=== PATIENT | female | born 1960 | race Caucasian/White ===

== ENCOUNTER → 2016-10-11 | Outpatient (CLI) | payer SELFPAY | LOC: COL.RAD 15:15 | DX: R22.42 Localized swelling, mass and lump, left lower limb (principal) ==

== ENCOUNTER 2017-03-01 12:53 | Emergency (ER) | payer OTHER ==
[~2017-03-01] VITALS: Ht 175.3 cm; Wt 105.7 kg
[2017-03-01 12:56] VITALS: BP 172/81; TEMP 97.7
[2017-03-01 14:43] LABS: BASO # 0.1 (0.0-0.2); BASO % 0.7 % (0.0-2.0); EOS # 0.2 (0.0-0.7); EOS % 2.1 % (0-4.0); GRAN # 4.7 (1.4-6.5); GRAN % 58.7 % (42.2-75.2); HEMATOCRIT 44.7 % (37.0-47.0); LYMPH # 2.6 (1.2-3.4); LYMPH % 31.7 % (20.0-51.0); MEAN CELL VOLUME 95 fl (80.0-100.0); MEAN CORPUSCULAR HEMOGLOBIN 32 pg (27.0-31.0); MEAN CORPUSCULAR HGB CONC 34 g/dl (33.0-37.0); MEAN PLATELET VOLUME 9.3 fl (7.4-10.4); MONO # 0.5 (0.1-0.6); MONO % 6.7 % (1.7-9.3); PLATELET COUNT 286 K/mm3 (130-400); RED BLOOD COUNT 4.73 M/mm3 (4.10-5.30)
[2017-03-01 14:58] LABS: ALBUMIN 4.8 gm/dL (3.5-5.0); BILIRUBIN,TOTAL 0.5 mg/dL (0.0-1.0); CALCIUM 9.6 mg/dL (8.4-10.2); CREATININE, serum 0.83 mg/dL (0.52-1.25); POTASSIUM 4.1 mmol/L (3.4-5.0); TOTAL PROTEIN 8.6 gm/dL (6.4-8.2)
[2017-03-01 15:04] LABS: COLLECTION METHOD CLEAN CATCH
[2017-03-01 15:16] LABS: MUCOUS Present /lpf; PH 6 (5-8); URINE APPEARANCE Hazy; URINE BACTERIA None Seen /hpf; URINE BILIRUBIN Negative (NEGATIVE); URINE BLOOD Negative (NEGATIVE); URINE COLOR Yellow; URINE GLUCOSE Negative (NEGATIVE); URINE KETONE Trace (NEGATIVE); URINE LEUKOCYTE ESTERASE Trace (NEGATIVE); URINE PROTEIN(semi-quant) 1+ (NEGATIVE)
[2017-03-01 15:28] LABS: TSH w REFLEX 1.45 uIU/mL (0.465-4.680)
[2017-03-01] MEDS ORDERED: ANTIVERT 25MG25 MG PO (16:00)
[2017-03-01 16:11] VITALS: PULSE 87
[2017-03-01] MEDS ORDERED: SUDAFED 12 HOU120 MG PO (16:28)
== END 2017-03-01 16:30 | disposition home or self-care (01) ==
LOC: COL.ER 12:53
PROVIDERS: Nurse Practitioner
DX: R42 Dizziness and giddiness (principal)

== ENCOUNTER → 2017-09-25 | Outpatient (CLI) | payer OTHER ==
[~2017-09-25] MED LIST: ANTIVERT 25MG25 MG PO; SUDAFED 12 HOU120 MG PO
== END ==
LOC: COL.RAD 09:42
DX: Z02.71 Encounter for disability determination (principal); M47.816 Spondylosis without myelopathy or radiculopathy, lumbar region; M17.12 Unilateral primary osteoarthritis, left knee

== ENCOUNTER → 2017-12-25 | Outpatient (CLI) | payer OTHER ==
[2017-12-25 12:55] LABS: COLLECTION METHOD CLEAN CATCH
[2017-12-25 12:59] LABS: BASO # 0.1 (0.0-0.2); BASO % 0.6 % (0.0-2.0); EOS # 0.1 (0.0-0.7); EOS % 1.5 % (0-4.0); GRAN # 5.3 (1.4-6.5); GRAN % 66.2 % (42.2-75.2); HEMATOCRIT 46.3 % (37.0-47.0); HEMOGLOBIN 15.8 g/dl (12.5-16.0); LYMPH # 2.1 (1.2-3.4); LYMPH % 26.1 % (20.0-51.0); MEAN CELL VOLUME 93 fl (80.0-100.0); MEAN CORPUSCULAR HEMOGLOBIN 32 pg (27.0-31.0); MEAN CORPUSCULAR HGB CONC 34 g/dl (33.0-37.0); MEAN PLATELET VOLUME 9.6 fl (7.4-10.4); MONO # 0.4 (0.1-0.6); MONO % 5.5 % (1.7-9.3); PLATELET COUNT 294 K/mm3 (130-400); REDCELL DISTRIBUTION WIDTH-CV 11.7 % (11.5-14.5)
[2017-12-25 13:04] LABS: MUCOUS Present /lpf; PH 5 (5-8); URINE APPEARANCE Hazy; URINE BACTERIA None Seen /hpf; URINE BILIRUBIN Negative (NEGATIVE); URINE BLOOD Negative (NEGATIVE); URINE COLOR Yellow; URINE GLUCOSE Negative (NEGATIVE); URINE KETONE Negative (NEGATIVE); URINE LEUKOCYTE ESTERASE Negative (NEGATIVE); URINE NITRATE Negative (NEGATIVE); URINE PROTEIN(semi-quant) Negative (NEGATIVE); URINE UROBILINOGEN Negative (NEGATIVE)
[2017-12-25 13:10] LABS: ALBUMIN 4.7 gm/dL (3.5-5.0); BILIRUBIN,TOTAL 0.6 mg/dL (0.0-1.0); CALCIUM 9.7 mg/dL (8.4-10.2); CHOLESTEROL RISK RATIO 5.4; CREATININE, serum 0.93 mg/dL (0.52-1.25); POTASSIUM 4.3 mmol/L (3.4-5.0); TOTAL PROTEIN 8.8 gm/dL (6.4-8.2)
[2017-12-25 13:40] LABS: THYROID STIMULATING HORMONE 1.96 uIU/mL (0.465-4.680)
[2017-12-26 01:17] LABS: FOLATE (FOLIC ACID) 8.4 ng/mL (7.0-31.4)
== END ==
LOC: COL.LAB 12:07
PROVIDERS: Nurse Practitioner Family
DX: R53.82 Chronic fatigue, unspecified (principal); R53.1 Weakness

== ENCOUNTER → 2018-04-02 | Outpatient (CLI) | payer MEDICAID | LOC: COL.RAD 10:04 | DX: D49.2 Neoplasm of unspecified behavior of bone, soft tissue, and skin (principal) ==

== ENCOUNTER → 2018-04-29 | Outpatient (CLI) | payer MEDICAID | LOC: COL.RAD 12:07 | DX: D49.2 Neoplasm of unspecified behavior of bone, soft tissue, and skin (principal); R22.42 Localized swelling, mass and lump, left lower limb ==

== ENCOUNTER 2018-06-21 15:33 | Emergency (ER) | payer MEDICAID ==
[~2018-06-21] VITALS: Ht 175.3 cm; Wt 97.3 kg
[2018-06-21 15:35] VITALS: TEMP 97.2
[2018-06-21 15:58] LABS: HEMATOCRIT 43.1 % (37.0-47.0); HEMOGLOBIN 14.6 g/dl (12.5-16.0); MEAN CELL VOLUME 94 fl (80.0-100.0); MEAN CORPUSCULAR HEMOGLOBIN 32 pg (27.0-31.0); MEAN CORPUSCULAR HGB CONC 34 g/dl (33.0-37.0); MEAN PLATELET VOLUME 9.5 fl (7.4-10.4); PLATELET COUNT 238 K/mm3 (130-400); RED BLOOD COUNT 4.59 M/mm3 (4.10-5.30); REDCELL DISTRIBUTION WIDTH-CV 11.7 % (11.5-14.5)
[2018-06-21 16:10] LABS: ALANINE AMINOTRANSFERASE 39 U/L (9-52); ALBUMIN 4.1 gm/dL (3.5-5.0); ALKALINE PHOSPHATASE 84 U/L (50-136); ANION GAP 11 mmol/L (7-16); AST,SGOT 33 U/L (15-37); BILIRUBIN,TOTAL 0.4 mg/dL (0.0-1.0); BLOOD UREA NITROGEN 15 mg/dL (7-17); CALCIUM 9.5 mg/dL (8.4-10.2); CARBON DIOXIDE 26 mmol/L (22-30); CHLORIDE 104 mmol/L (98-107); CREATININE, serum 1.04 mg/dL (0.52-1.25); GLUCOSE 104 mg/dL (74-106); SODIUM 141 mmol/L (137-145); TOTAL PROTEIN 7.5 gm/dL (6.4-8.2)
[2018-06-21 16:13] LABS: ACETAMINOPHEN < 10 ug/mL (10-30); ALCOHOL(ethanol),MEDICAL < 10 mg/dL; SALICYLATE < 1.0 mg/dL
[2018-06-21 16:21] LABS: TROPONIN-I < 0.012 ng/mL (0.000-0.035)
[2018-06-21] MEDS ORDERED: MILK THISTLE500 M2 PO (16:22)
[2018-06-21] MEDS ORDERED: VITAMIND3 5000 PO (16:23)
[2018-06-21 16:37] LABS: LYMPHOCYTE 46 % (20.0-51.0); NEUTROPHILS 47 % (42.0-75.2)
[2018-06-21 16:38] LABS: PLATELET ESTIMATE NORMAL (NORMAL)
[2018-06-21 17:13] LABS: COLLECTION METHOD CLEAN CATCH
[2018-06-21 17:27] LABS: TRICYCLIC ANTIDEPRESS URINE NEGATIVE
[2018-06-21 17:58] LABS: MUCOUS Present /lpf; PH 5 (5-8); SQUAMOUS EPITHELIAL 0-2 /hpf; URINE APPEARANCE Hazy; URINE BACTERIA None Seen /hpf; URINE BILIRUBIN Negative (NEGATIVE); URINE BLOOD Negative (NEGATIVE); URINE COLOR Yellow; URINE GLUCOSE Negative (NEGATIVE); URINE KETONE Negative (NEGATIVE); URINE LEUKOCYTE ESTERASE Negative (NEGATIVE); URINE NITRATE Negative (NEGATIVE); URINE PROTEIN(semi-quant) Negative (NEGATIVE); URINE RBC 0-2 /hpf
[2018-06-21] MEDS ORDERED: ZITHROMAX 250M250 MG PO (18:13)
[2018-06-21 18:21] VITALS: BP 122/86; PULSE 78
== END 2018-06-21 18:25 | disposition home or self-care (01) ==
LOC: COL.ER 15:33
PROVIDERS: Emergency Medicine
DX: R19.7 Diarrhea, unspecified (principal); J40 Bronchitis, not specified as acute or chronic

== ENCOUNTER 2018-12-01 16:41 | Emergency (ER) | payer MEDICAID ==
[~2018-12-01] VITALS: Ht 172.7 cm; Wt 101.8 kg
[~2018-12-01 16:41] MED LIST changes: +MILK THISTLE500 M2 PO; +VITAMIND3 5000 PO; +ZITHROMAX 250M250 MG PO
[2018-12-01 16:49] VITALS: TEMP 97.9
[2018-12-01] MEDS ORDERED: ERGOCALCIFER50000 IU PO (17:28)
[2018-12-01] MEDS ORDERED: WELCHOL 625MG625 MG PO (17:30)
[2018-12-01 17:52] LABS: BASO # 0.1 (0.0-0.2); BASO % 0.6 % (0.0-2.0); EOS # 0.2 (0.0-0.7); EOS % 2.1 % (0-4.0); GRAN # 4.9 (1.4-6.5); HEMATOCRIT 41.4 % (37.0-47.0); HEMOGLOBIN 13.6 g/dl (12.5-16.0); LYMPH # 2.4 (1.2-3.4); LYMPH % 29.9 % (20.0-51.0); MEAN CELL VOLUME 96 fl (80.0-100.0); MEAN CORPUSCULAR HEMOGLOBIN 32 pg (27.0-31.0); MEAN CORPUSCULAR HGB CONC 33 g/dl (33.0-37.0); MEAN PLATELET VOLUME 9.3 fl (7.4-10.4); MONO # 0.5 (0.1-0.6); MONO % 6.2 % (1.7-9.3); PLATELET COUNT 309 K/mm3 (130-400); RED BLOOD COUNT 4.32 M/mm3 (4.10-5.30); REDCELL DISTRIBUTION WIDTH-CV 11.5 % (11.5-14.5)
[2018-12-01 18:11] LABS: ALBUMIN 4.3 gm/dL (3.5-5.0); BILIRUBIN,TOTAL 0.4 mg/dL (0.0-1.0); C-REACTIVE PROTEIN 0.9 mg/dL (0.0-0.9); CALCIUM 9.1 mg/dL (8.4-10.2); CREATININE, serum 0.86 (0.52-1.25); POTASSIUM 3.9 mmol/L (3.4-5.0)
[2018-12-01 18:41] LABS: ERYTHROCYTE SEDIMENTATION RATE 14 mm/hr (0-30)
[2018-12-01] MEDS ORDERED: CEPHALEXIN500 M1 PO (18:59)
[2018-12-01 19:06] VITALS: BP 135/82; PULSE 73
== END 2018-12-01 19:07 | disposition home or self-care (01) ==
LOC: COL.ER 16:41
PROVIDERS: Emergency Medicine
DX: T81.89XA Other complications of procedures, not elsewhere classified, initial encounter (principal); E78.5 Hyperlipidemia, unspecified; Z87.891 Personal history of nicotine dependence

== ENCOUNTER → 2018-12-23 | Outpatient (CLI) | payer MEDICAID ==
[~2018-12-23] MED LIST changes: +CEPHALEXIN500 M1 PO; +ERGOCALCIFER50000 IU PO; +WELCHOL 625MG625 MG PO
== END ==
LOC: MC.RAD 09:00
DX: Z12.31 Encounter for screening mammogram for malignant neoplasm of breast (principal); N64.89 Other specified disorders of breast

== ENCOUNTER → 2018-12-25 | Outpatient (CLI) | payer MEDICAID | LOC: ZCOL.LAB 10:13 | DX: T81.31XA Disruption of external operation (surgical) wound, not elsewhere classified, initial encounter (principal) ==

== ENCOUNTER → 2018-12-26 | Outpatient (CLI) | payer MEDICAID | LOC: MC.RAD 12:54 | DX: N63.32 Unspecified lump in axillary tail of the left breast (principal); N63.13 Unspecified lump in the right breast, lower outer quadrant | CPT/HCPCS: G0279 ==

== ENCOUNTER → 2019-01-06 | Outpatient (CLI) | payer MEDICAID | LOC: MC.RAD 09:30 | DX: N63.10 Unspecified lump in the right breast, unspecified quadrant (principal); N63.21 Unspecified lump in the left breast, upper outer quadrant; Z98.82 Breast implant status; T81.31XA Disruption of external operation (surgical) wound, not elsewhere classified, initial encounter ==

== ENCOUNTER → 2019-01-06 | Outpatient (CLI) | payer MEDICAID | LOC: ZCOL.LAB 16:23 | DX: H60.91 Unspecified otitis externa, right ear (principal) ==

== ENCOUNTER → 2019-01-21 | Outpatient (CLI) | payer MEDICAID | LOC: ZCOL.LAB 16:14 | DX: Z11.3 Encounter for screening for infections with a predominantly sexual mode of transmission (principal); N89.8 Other specified noninflammatory disorders of vagina ==

== ENCOUNTER → 2019-02-04 | Outpatient (CLI) | payer MEDICAID | LOC: COL.RAD 11:57 | DX: C50.412 Malignant neoplasm of upper-outer quadrant of left female breast (principal); C50.511 Malignant neoplasm of lower-outer quadrant of right female breast; K80.20 Calculus of gallbladder without cholecystitis without obstruction; Z98.890 Other specified postprocedural states | CPT/HCPCS: Q9967 ==

== ENCOUNTER → 2019-02-12 | Outpatient (CLI) | payer MEDICAID ==
[2019-02-12 17:37] LABS: BASO # 0.1 (0.0-0.2); BASO % 0.9 % (0.0-2.0); EOS # 0.2 (0.0-0.7); EOS % 2.8 % (0-4.0); GRAN # 4.3 (1.4-6.5); GRAN % 60.7 % (42.2-75.2); HEMATOCRIT 43.3 % (37.0-47.0); HEMOGLOBIN 14.3 g/dl (12.5-16.0); MEAN CELL VOLUME 95 fl (80.0-100.0); MEAN CORPUSCULAR HEMOGLOBIN 32 pg (27.0-31.0); MEAN CORPUSCULAR HGB CONC 33 g/dl (33.0-37.0); MEAN PLATELET VOLUME 10.4 fl (7.4-10.4); MONO # 0.4 (0.1-0.6); MONO % 6.3 % (1.7-9.3); PLATELET COUNT 289 K/mm3 (130-400); RED BLOOD COUNT 4.54 M/mm3 (4.10-5.30); REDCELL DISTRIBUTION WIDTH-CV 11.6 % (11.5-14.5)
[2019-02-12 17:49] LABS: CALCIUM 9.7 mg/dL (8.4-10.2); CREATININE, serum 0.89 (0.52-1.25); POTASSIUM 4.3 mmol/L (3.4-5.0)
== END ==
LOC: ZCOL.LAB 16:38
PROVIDERS: Family Medicine
DX: D05.11 Intraductal carcinoma in situ of right breast (principal); E55.9 Vitamin D deficiency, unspecified; E53.8 Deficiency of other specified B group vitamins

== ENCOUNTER 2019-03-13 16:57 | Emergency (ER) | payer MEDICAID ==
[~2019-03-13] VITALS: Ht 170.2 cm; Wt 105.5 kg
[2019-03-13 17:08] VITALS: BP 175/108; TEMP 97.3
[2019-03-13] MEDS ORDERED: MOTRIN 800800 MG/TAB PO (18:11)
[2019-03-13] MEDS ORDERED: BACTRIM DS 8001 TAB PO (18:24)
[2019-03-13 18:42] VITALS: PULSE 89
== END 2019-03-13 18:42 | disposition home or self-care (01) ==
LOC: COL.ER 16:57
DX: T36.1X5A Adverse effect of cephalosporins and other beta-lactam antibiotics, initial encounter (principal); E11.9 Type 2 diabetes mellitus without complications; Z87.891 Personal history of nicotine dependence; Z88.6 Allergy status to analgesic agent

== ENCOUNTER → 2019-03-16 | Outpatient (CLI) | payer MEDICAID ==
[~2019-03-16] MED LIST changes: +BACTRIM DS 8001 TAB PO; +MOTRIN 800800 MG/TAB PO
== END ==
LOC: ZCOL.LAB 14:57
DX: E55.9 Vitamin D deficiency, unspecified (principal)

== ENCOUNTER 2019-03-29 09:11 | Emergency (ER) | payer MEDICAID ==
[~2019-03-29] VITALS: Ht 170.2 cm; Wt 103.6 kg
[2019-03-29 09:14] VITALS: TEMP 97.6
[2019-03-29 10:15] LABS: BASO # 0.1 (0.0-0.2); BASO % 0.8 % (0.0-2.0); EOS # 0.4 (0.0-0.7); EOS % 5.4 % (0-4.0); GRAN # 4.3 (1.4-6.5); GRAN % 58.6 % (42.2-75.2); HEMATOCRIT 39.4 % (37.0-47.0); HEMOGLOBIN 12.8 g/dl (12.5-16.0); LYMPH # 2.1 (1.2-3.4); LYMPH % 28.3 % (20.0-51.0); MEAN CELL VOLUME 96 fl (80.0-100.0); MEAN CORPUSCULAR HEMOGLOBIN 31 pg (27.0-31.0); MEAN CORPUSCULAR HGB CONC 33 g/dl (33.0-37.0); MEAN PLATELET VOLUME 9.4 fl (7.4-10.4); MONO # 0.5 (0.1-0.6); MONO % 6.6 % (1.7-9.3); PLATELET COUNT 319 K/mm3 (130-400); RED BLOOD COUNT 4.09 M/mm3 (4.10-5.30); REDCELL DISTRIBUTION WIDTH-CV 11.5 % (11.5-14.5)
[2019-03-29 10:22] LABS: ALBUMIN 3.7 gm/dL (3.5-5.0); BILIRUBIN,TOTAL 0.4 mg/dL (0.0-1.0); CALCIUM 8.7 mg/dL (8.4-10.2); CREATININE, serum 0.83 (0.52-1.25); POTASSIUM 3.8 mmol/L (3.4-5.0); TOTAL PROTEIN 6.7 gm/dL (6.4-8.2)
[2019-03-29] MEDS ORDERED: FLEXERIL 1010 MG/TAB PO (11:36)
[2019-03-29 12:16] VITALS: BP 145/85; PULSE 61
--- NOTE | 2019-03-29 16:00 | NUR ---
SW was called to assist patient with HHS. Patient had a double masectomy on March 10, 2019 and had encountered a sharp pain, which sent her to the ER. Patient lives alone in [facility]. SW and patient discussed HHS, and patient [facility] to receive services. Patient does live alone. Shortly after interview concluded, SW received a call from [facility] reporting that patient had called them asking for services. SW provided information and [facility] will call SW tomorrow to see if they will accept patient for services. LIS also faxed a referral to [facility].
--- NOTE | 2019-03-30 11:25 | NUR ---
body worker spoke with Cecilia at [facility] and confirmed that patient has medicaid and that they do not provide services for medicaid patients and are currently attempting to find agency to see patient. Mariela is also completed a yadiel application if they cannot find an agency. Worker spoke with James at [facility] and confirmed that they only provide palliative care services to patient not seeking treatment. HomeCare is currently on hold, per worker's request. Worker spoke with patient and advised that we are working on an agency to see patient. Patient states she can provide her drain care, however, is agreeable to at least have one alf health visit.
--- NOTE | 2019-03-31 14:42 | NUR ---
sprinkler worker notified Dr Ordoñez's office and advised that patient declined further assistance in attempting to arrange a home health agency.
== END 2019-03-29 12:19 | disposition home or self-care (01) ==
LOC: COL.ER 09:11
PROVIDERS: Emergency Medicine
DX: S29.011A Strain of muscle and tendon of front wall of thorax, initial encounter (principal); Z85.3 Personal history of malignant neoplasm of breast; Z90.13 Acquired absence of bilateral breasts and nipples; X58.XXXA Exposure to other specified factors, initial encounter
CPT/HCPCS: J2405; Q9967

== ENCOUNTER → 2019-07-28 | Outpatient (CLI) | payer MEDICAID ==
[~2019-07-28] MED LIST changes: +FLEXERIL 1010 MG/TAB PO
== END ==
LOC: COL.RAD 13:57
DX: M54.5 Low back pain (principal)

== ENCOUNTER 2019-08-01 11:38 | Emergency (ER) | payer MEDICAID ==
[~2019-08-01] VITALS: Ht 172.7 cm; Wt 98.2 kg
[2019-08-01 11:54] VITALS: TEMP 97.7
[2019-08-01] MEDS ORDERED: AMOXICILLIN 50500 MG PO (12:40)
[2019-08-01] MEDS ORDERED: PRILOSEC 20MG20 MG PO (12:43)
[2019-08-01 12:56] VITALS: BP 175/81; PULSE 66
== END 2019-08-01 12:57 | disposition home or self-care (01) ==
LOC: COL.ER 11:38
DX: J39.2 Other diseases of pharynx (principal); R59.1 Generalized enlarged lymph nodes; E11.9 Type 2 diabetes mellitus without complications; Z87.891 Personal history of nicotine dependence; Z79.82 Long term (current) use of aspirin; Z88.6 Allergy status to analgesic agent; Z88.8 Allergy status to other drugs, medicaments and biological substances

== ENCOUNTER 2019-09-03 10:56 | Emergency (ER) | payer MEDICAID ==
[~2019-09-03] VITALS: Ht 172.7 cm; Wt 96.8 kg
[~2019-09-03 10:56] MED LIST changes: +AMOXICILLIN 50500 MG PO; +PRILOSEC 20MG20 MG PO
[2019-09-03 10:59] VITALS: TEMP 98.2
[2019-09-03] MEDS ORDERED: NIASPAN1000 MG PO (11:15)
[2019-09-03] MEDS ORDERED: NORVASC 10MG10 MG PO (11:19)
[2019-09-03] MEDS ORDERED: HYZAAR 50-12.1 UDTAB PO (11:19)
[2019-09-03] MEDS ORDERED: B2-5050 MG PO (11:20)
[2019-09-03 11:41] VITALS: BP 129/68
[2019-09-03 11:44] LABS: BASO % 0.4 % (0.0-2.0); EOS # 0.2 (0.0-0.7); EOS % 2.4 % (0-4.0); GRAN # 4.9 (1.4-6.5); GRAN % 68.6 % (42.2-75.2); HEMATOCRIT 40.7 % (37.0-47.0); HEMOGLOBIN 13.4 g/dl (12.5-16.0); LYMPH # 1.6 (1.2-3.4); LYMPH % 22.2 % (20.0-51.0); MEAN CELL VOLUME 95 fl (80.0-100.0); MEAN CORPUSCULAR HEMOGLOBIN 31 pg (27.0-31.0); MEAN CORPUSCULAR HGB CONC 33 g/dl (33.0-37.0); MEAN PLATELET VOLUME 9.4 fl (7.4-10.4); MONO # 0.5 (0.1-0.6); MONO % 6.3 % (1.7-9.3); PLATELET COUNT 261 K/mm3 (130-400); REDCELL DISTRIBUTION WIDTH-CV 12.2 % (11.5-14.5)
[2019-09-03 11:55] LABS: ALBUMIN 4.2 gm/dL (3.5-5.0); BILIRUBIN,TOTAL 0.8 mg/dL (0.0-1.0); CALCIUM 9.5 mg/dL (8.4-10.2); CREATININE, serum 0.79 (0.52-1.25); POTASSIUM 3.5 mmol/L (3.4-5.0); TOTAL PROTEIN 7.8 gm/dL (6.4-8.2)
[2019-09-03 12:33] VITALS: PULSE 72
== END 2019-09-03 12:34 | disposition home or self-care (01) ==
LOC: COL.ER 10:56
PROVIDERS: Nurse Practitioner Primary Care
DX: M25.551 Pain in right hip (principal); G89.29 Other chronic pain; E11.9 Type 2 diabetes mellitus without complications; I10 Essential (primary) hypertension; Z85.3 Personal history of malignant neoplasm of breast

== ENCOUNTER 2019-10-30 09:28 | Emergency (ER) | payer MEDICAID ==
[~2019-10-30] VITALS: Ht 170.2 cm; Wt 92.3 kg
[~2019-10-30 09:28] MED LIST changes: +B2-5050 MG PO; +HYZAAR 50-12.1 UDTAB PO; +NIASPAN1000 MG PO; +NORVASC 10MG10 MG PO
[2019-10-30 09:29] VITALS: BP 148/68; PULSE 72; TEMP 97
[2019-10-30 11:00] LABS: BASO # 0.1 (0.0-0.2); BASO % 0.8 % (0.0-2.0); EOS # 0.4 (0.0-0.7); EOS % 5.9 % (0-4.0); GRAN # 4.3 (1.4-6.5); GRAN % 64.9 % (42.2-75.2); HEMATOCRIT 36.9 % (37.0-47.0); LYMPH # 1.5 (1.2-3.4); LYMPH % 22.4 % (20.0-51.0); MEAN CELL VOLUME 96 fl (80.0-100.0); MEAN CORPUSCULAR HEMOGLOBIN 31 pg (27.0-31.0); MEAN CORPUSCULAR HGB CONC 33 g/dl (33.0-37.0); MEAN PLATELET VOLUME 9.3 fl (7.4-10.4); MONO # 0.4 (0.1-0.6); MONO % 5.7 % (1.7-9.3); PLATELET COUNT 391 K/mm3 (130-400); RED BLOOD COUNT 3.86 M/mm3 (4.10-5.30); REDCELL DISTRIBUTION WIDTH-CV 11.6 % (11.5-14.5)
--- NOTE | 2019-10-30 11:26 | NUR ---
heating and ventilating worker met with patient and advised that patient will need to contact [employer] [facility] and attest to covid questions. Worker offered to assist with Transportation line needed staff to advise that appointment was moved up to Saturday, due to increased need. Patient became uncooperative and declining to make the call. Worker spoke with Dr Sosa's PA, Lesley #[phone] and advised of the above information. Lesley moved up patient's surgery, per request as patient was concerns and coming to the emergency room for care. Worker collaborated with provider and nurse regarding the above information.
--- NOTE | 2019-11-02 15:56 | NUR ---
insole department worker spoke with patient and assisted in securing that she is able to contact [employer] and request transporation rides. Patient stated that initially she was unable to speak with [employer] and now she has been able to successfully secure rides.
--- NOTE | 2019-11-04 12:49 | NUR ---
[facility] case management contacted this social media marketing manager and confirmed they will make contact with patient to assess and possibly set up case management.
== END 2019-10-30 13:15 | disposition home or self-care (01) ==
LOC: COL.ER 09:28
PROVIDERS: Physician Assistant
DX: L76.82 Other postprocedural complications of skin and subcutaneous tissue (principal); N61.1 Abscess of the breast and nipple; I10 Essential (primary) hypertension; Z87.891 Personal history of nicotine dependence; Z90.13 Acquired absence of bilateral breasts and nipples

== ENCOUNTER 2019-11-21 10:01 | Outpatient (RCR) | payer MEDICAID ==
[2019-11-20 07:56] VITALS: BP 153/73; PULSE 56; TEMP 98.1
[~2019-11-21] VITALS: Ht 170.2 cm; Wt 92.6 kg
[~2019-11-21 10:01] MED LIST changes: +D3-5050000 IU PO; +TAMOXIFEN CITRA20 MG PO
[2019-11-22 09:13] VITALS: PULSE 83; TEMP 98.8
--- NOTE | 2019-11-22 14:29 | NUR ---
Received call from charge nurse(morning shift) that patient had been discharged and was needing assistqance with transportation to her antibiotic Infusion treatment at the hospital. SW contacted patient who indicated that the sales route driver had shown up late last time and so she asked if she could have her pickup time changed from 645 to 9 or 930. Sw did contact [employer] at spoke with Man who indicated that he would update patients transport time to 9 or 930. SW contacted patient to inform her of the change.
[2019-11-23 10:50] VITALS: BP 147/81; PULSE 81; TEMP 97.8
[2019-11-23 10:58] LABS: HEMATOCRIT 38.7 % (37.0-47.0); HEMOGLOBIN 12.5 g/dl (12.5-16.0); MEAN CELL VOLUME 93 fl (80.0-100.0); MEAN CORPUSCULAR HEMOGLOBIN 30 pg (27.0-31.0); MEAN CORPUSCULAR HGB CONC 32 g/dl (33.0-37.0); MEAN PLATELET VOLUME 8.8 fl (7.4-10.4); PLATELET COUNT 406 K/mm3 (130-400); RED BLOOD COUNT 4.15 M/mm3 (4.10-5.30); REDCELL DISTRIBUTION WIDTH-CV 11.7 % (11.5-14.5)
[2019-11-23 11:14] LABS: ALBUMIN 4.2 gm/dL (3.5-5.0); BILIRUBIN,TOTAL 0.5 mg/dL (0.0-1.0); CALCIUM 9.5 mg/dL (8.4-10.2); CREATININE, serum 0.96 (0.52-1.25); TOTAL PROTEIN 8.4 gm/dL (6.4-8.2)
[2019-11-24 10:08] VITALS: BP 146/100; PULSE 105; TEMP 98.6
[2019-11-25 11:32] VITALS: BP 182/96; PULSE 78; TEMP 98.3
[2019-11-26 09:55] VITALS: BP 158/83; PULSE 62; TEMP 98.4
[2019-11-27 10:05] VITALS: BP 174/107; PULSE 57; TEMP 98.2
--- NOTE | 2019-11-27 10:06 | NUR ---
Pt request bp to be taken on right lower leg.Pt refuses to lay down or recline so leg in dependant position for bp.Educated pt on accurate reading and need to recheck.Pt refuses to recline chair,This nurse unclear if bp accurate.
[2019-11-28 10:18] VITALS: BP 156/99; PULSE 52; TEMP 97.9
--- NOTE | 2019-11-28 10:19 | NUR ---
INT discontinued per pt request so she may shower.
[2019-11-29 10:15] VITALS: BP 136/70; PULSE 60; TEMP 98.1
[2019-11-30 10:41] VITALS: BP 159/83; PULSE 62
[2019-11-30 11:09] LABS: BASO # 0.1 (0.0-0.2); BASO % 1.2 % (0.0-2.0); EOS # 0.4 (0.0-0.7); EOS % 6.6 % (0-4.0); GRAN # 3.9 (1.4-6.5); GRAN % 59.5 % (42.2-75.2); HEMOGLOBIN 12.8 g/dl (12.5-16.0); LYMPH # 1.7 (1.2-3.4); LYMPH % 25.5 % (20.0-51.0); MEAN CELL VOLUME 93 fl (80.0-100.0); MEAN CORPUSCULAR HEMOGLOBIN 30 pg (27.0-31.0); MEAN CORPUSCULAR HGB CONC 33 g/dl (33.0-37.0); MEAN PLATELET VOLUME 9.5 fl (7.4-10.4); MONO # 0.5 (0.1-0.6); PLATELET COUNT 309 K/mm3 (130-400); RED BLOOD COUNT 4.21 M/mm3 (4.10-5.30); REDCELL DISTRIBUTION WIDTH-CV 11.9 % (11.5-14.5)
[2019-11-30 11:24] LABS: ALBUMIN 4.3 gm/dL (3.5-5.0); BILIRUBIN,TOTAL 0.5 mg/dL (0.0-1.0); C-REACTIVE PROTEIN 0.7 mg/dL (0.0-0.9); CALCIUM 9.4 mg/dL (8.4-10.2); CREATININE, serum 0.92 (0.52-1.25); POTASSIUM 3.8 mmol/L (3.4-5.0); TOTAL PROTEIN 8.4 gm/dL (6.4-8.2)
--- NOTE | 2019-11-30 13:51 | NUR ---
[employer] Field Supervisor received a phone call from RNJovan who advised patient took EMS transport to her outpatient IV infusion appointment today as [employer] did not show up. SW met with patient who states that when she called [employer] to arrange her ride home today, they told her since she came in EMS they could not take her home. SW contacted [employer] and was advised that they would lemon picker patient to take her home and should arrive in the next 10-15 minutes (trip #[id number]). LIS confirmed with [employer] that patient has a ride arranged this afternoon to her appointment in [place] and to her infusion tomorrow at 1000. Teresa at [employer] advised that they contract with [email or web address] to take patients to in town appointments. Patient reports that sometimes there are no Lyft drivers available and then [employer] does not reassign the trip, resulting in no ride. Teresa advised that if patient does not receive a text confirmation tomorrow about 15-20 minutes before her ride is scheduled, to contact [employer] to follow up. Patient has the phone number for [employer] and reports that she also called [employer] today to file a formal greivance about the recent issues she's had with their transportation. No additional needs at this time.
[2019-12-01 09:26] VITALS: BP 148/86; PULSE 64; TEMP 98.1
== END 2019-12-01 10:03 | disposition home or self-care (01) ==
LOC: EUO 11-22 07:30
PROVIDERS: Family Medicine
DX: N61.1 Abscess of the breast and nipple (principal)
CPT/HCPCS: J0696

== ENCOUNTER 2020-05-18 18:48 | Emergency (ER) | payer MEDICAID | END 2020-05-18 18:52 | disposition left against medical advice (07) | LOC: COL.ER 18:48 | DX: R00.2 Palpitations (principal); Z79.899 Other long term (current) drug therapy ==

== ENCOUNTER 2020-05-27 14:45 | Outpatient (RCR) | payer MEDICAID | END 2020-06-28 13:42 | disposition home or self-care (01) | LOC: MKS.ESL.PT 14:45 | DX: M51.16 Intervertebral disc disorders with radiculopathy, lumbar region (principal) ==

== ENCOUNTER 2020-09-11 23:30 | Emergency (ER) | payer MEDICAID ==
[~2020-09-11] VITALS: Ht 170.2 cm; Wt 98.2 kg
[2020-09-12 04:34] VITALS: BP 125/83; PULSE 74; TEMP 98.8
== END 2020-09-12 04:34 | disposition home or self-care (01) ==
LOC: COL.ER 23:30
DX: F10.129 Alcohol abuse with intoxication, unspecified (principal); I10 Essential (primary) hypertension; Z87.891 Personal history of nicotine dependence; Z79.899 Other long term (current) drug therapy
CPT/HCPCS: J2405; J7120

== ENCOUNTER 2021-01-19 08:16 | Emergency (ER) | payer MEDICAID ==
[~2021-01-19] VITALS: Ht 170.2 cm; Wt 101.8 kg
[2021-01-19 08:17] VITALS: TEMP 97.9
[2021-01-19 08:55] LABS: BASO # 0.1 K/mm3 (0.0-0.2); BASO % 0.5 % (0.0-2.0); EOS # 0.2 K/mm3 (0.0-0.7); GRAN # 6.3 K/mm3 (1.4-6.5); GRAN % 65.9 % (42.2-75.2); HEMATOCRIT 37.3 % (37.0-47.0); HEMOGLOBIN 12.6 g/dl (12.5-16.0); LYMPH # 2.4 K/mm3 (1.2-3.4); LYMPH % 25.4 % (20.0-51.0); MEAN CELL VOLUME 93 fl (80.0-100.0); MEAN CORPUSCULAR HEMOGLOBIN 31 pg (27.0-31.0); MEAN CORPUSCULAR HGB CONC 34 g/dl (33.0-37.0); MEAN PLATELET VOLUME 9.5 fl (7.4-10.4); MONO # 0.6 K/mm3 (0.1-0.6); MONO % 5.9 % (1.7-9.3); PLATELET COUNT 300 K/mm3 (130-400); RED BLOOD COUNT 4.02 M/mm3 (4.10-5.30); REDCELL DISTRIBUTION WIDTH-CV 11.9 % (11.5-14.5)
[2021-01-19 09:06] LABS: ALBUMIN 3.8 gm/dL (3.5-5.0); BILIRUBIN,TOTAL 0.4 mg/dL (0.2-1.2); CALCIUM 9.8 mg/dL (8.4-10.2); CREATININE, serum 0.96 mg/dL (0.57-1.11); POTASSIUM 3.7 mmol/L (3.5-4.5); TOTAL PROTEIN 7.6 gm/dL (6.2-8.1)
[2021-01-19 10:32] LABS: COLLECTION METHOD CLEAN CATCH
[2021-01-19 10:40] LABS: PH 5 (5-8); SQUAMOUS EPITHELIAL 0-2 /hpf; URINE APPEARANCE Clear; URINE BACTERIA None Seen /hpf; URINE BILIRUBIN Negative (NEGATIVE); URINE BLOOD Negative (NEGATIVE); URINE COLOR Straw; URINE GLUCOSE Negative (NEGATIVE); URINE KETONE Negative (NEGATIVE); URINE LEUKOCYTE ESTERASE Negative (NEGATIVE); URINE NITRATE Negative (NEGATIVE); URINE PROTEIN(semi-quant) Negative (NEGATIVE); URINE RBC 0-2 /hpf; URINE UROBILINOGEN Negative (NEGATIVE)
[2021-01-19] MEDS ORDERED: PERCOCET 325 MG1 TA2 PO (13:12)
[2021-01-19] MEDS ORDERED: ZOFRAN ODT4 MG PO (13:14)
[2021-01-19 13:52] VITALS: BP 118/54; PULSE 72
== END 2021-01-19 13:52 | disposition home or self-care (01) ==
LOC: COL.ER 08:16
PROVIDERS: Personal Emergency Response Attendant
DX: K80.50 Calculus of bile duct without cholangitis or cholecystitis without obstruction (principal); Z87.891 Personal history of nicotine dependence
CPT/HCPCS: C9113; J2270; J2405; J7030; Q9967

== ENCOUNTER 2023-05-07 11:20 | Emergency (ER) | payer MEDICAID ==
[~2023-05-07] VITALS: Ht 170.2 cm; Wt 103.6 kg
[~2023-05-07 11:20] MED LIST changes: +PERCOCET 325 MG1 TA2 PO; +ZOFRAN ODT4 MG PO
[2023-05-07] MEDS ORDERED: Acetaminophen 500 MG TAB PO ONE (13:00)
[2023-05-07 13:38] VITALS: TEMP 100.8
[2023-05-07] MEDS ORDERED: ZOFRAN ODT4 MG PO (14:15)
[2023-05-07 14:24] VITALS: BP 141/81; PULSE 92
== END 2023-05-07 14:24 | disposition home or self-care (01) ==
LOC: COL.ER 11:20
DX: J10.1 Influenza due to other identified influenza virus with other respiratory manifestations (principal); Z87.891 Personal history of nicotine dependence

== ENCOUNTER 2023-11-12 01:03 | Emergency (ER) | payer MEDICAID ==
[~2023-11-12] VITALS: Ht 170.2 cm; Wt 88.1 kg
[2023-11-12 01:09] VITALS: TEMP 97.9
[2023-11-12] MEDS ORDERED: Ondansetron 4 MG/2 ML VIAL IV ONE (01:30)
[2023-11-12] MEDS ORDERED: Morphine 4 MG/ML VIAL IV ONE (01:30)
[2023-11-12 02:13] LABS: COLLECTION METHOD CLEAN CATCH
[2023-11-12 02:17] LABS: BASO % 0.5 % (0.0-2.0); EOS # 0.1 K/mm3 (0.0-0.7); EOS % 1.2 % (0.0-4.0); GRAN # 5.2 K/mm3 (1.4-6.5); GRAN % 60.3 % (42.2-75.2); HEMATOCRIT 39.4 % (37.0-47.0); LYMPH # 2.5 K/mm3 (1.2-3.4); LYMPH % 28.7 % (20.0-51.0); MEAN CELL VOLUME 95 fl (80.0-100.0); MEAN CORPUSCULAR HEMOGLOBIN 31 pg (27-31); MEAN CORPUSCULAR HGB CONC 33 g/dl (33.0-37.0); MEAN PLATELET VOLUME 9.8 fl (7.4-10.4); MONO # 0.8 K/mm3 (0.1-0.6); PLATELET COUNT 271 K/mm3 (130-400); RED BLOOD COUNT 4.17 M/mm3 (4.10-5.30); REDCELL DISTRIBUTION WIDTH-CV 11.9 % (11.5-14.5)
[2023-11-12 02:29] LABS: PH 5.5 (5.0-8.5); URINE APPEARANCE CLEAR (CLEAR/HAZY); URINE BLOOD TRACE-INTACT (NEGATIVE); URINE COLOR YELLOW (YELLOW); URINE GLUCOSE NEGATIVE (NEGATIVE); URINE KETONE NEGATIVE (NEGATIVE); URINE NITRATE NEGATIVE (NEGATIVE); URINE PROTEIN(semi-quant) NEGATIVE (NEGATIVE); URINE UROBILINOGEN 0.2 E.U/dL (0.2-1.0)
[2023-11-12 02:35] LABS: ALBUMIN 3.6 g/dL (3.4-4.8); BILIRUBIN,TOTAL 0.3 mg/dL (0.2-1.2); CALCIUM 9.1 mg/dL (8.4-10.2); CREATININE, serum 0.94 mg/dL (0.57-1.11); POTASSIUM 4.1 mEq/L (3.5-4.5); TOTAL PROTEIN 7.2 g/dl (6.2-8.1)
[2023-11-12] MEDS ORDERED: NS 50 ML IV SCH (02:51)
[2023-11-12] MEDS ORDERED: Iohexol 300 - 100 ML VIAL IV ONE (02:51)
[2023-11-12] MEDS ORDERED: HYDROmorphone 0.5 MG/0.5 ML SYRINGE IV ONE (03:30)
[2023-11-12] MEDS ORDERED: PEPCID40 MG PO (04:30)
[2023-11-12 04:40] VITALS: BP 163/79; PULSE 59
== END 2023-11-12 04:40 | disposition home or self-care (01) ==
LOC: COL.ER 01:03
PROVIDERS: Emergency Medicine
DX: K29.70 Gastritis, unspecified, without bleeding (principal); K80.20 Calculus of gallbladder without cholecystitis without obstruction; R59.0 Localized enlarged lymph nodes
CPT/HCPCS: J1170; J2270; J2405; Q9967